=== PATIENT | male | born 1990 | race African-American/Black ===

== ENCOUNTER 2018-10-09 02:54 | Emergency (ER) | payer SELFPAY ==
[~2018-10-09] VITALS: Ht 170.2 cm; Wt 81.6 kg
--- NOTE | 2018-10-09 03:05 | NUR ---
ED Nurse Note: Patient walk in c/o laceration to left hand. Patient states he cut his hand on some broken glass 30 minutes ago. AO4. NAD. VSS. ERMD at bedside.
[2018-10-09] MEDS ORDERED: Tetanus/Diptheria/Pertussis Vaccine 0.5ml Syr IM ONE (03:15)
--- NOTE | 2018-10-09 03:20 | Emergency Room Report ---
History of Present Illness General Chief Complaint: Laceration Source: Patient Present Illness HPI Is a 28-year-old male who is right-hand dominant. He presents with chief complaint of laceration to his left hand. Onset was just prior to arrival. He said he hopped a fence and when he landed he put his hand on the ground and there was a broken glass on the ground. He sustained a laceration to the palm of the right hand. No active bleeding. Denies any pain. No other complaint. Allergies: Coded Allergies: No Known Allergies (Unverified , 10/09/18) Patient History Past Medical History: see triage record, old chart reviewed Past Surgical History: none Pertinent Family History: none Social History: Denies: smoking Immunizations: other Reviewed Nursing Documentation: PMH: Agreed; PSxH: Agreed Nursing Documentation-PM Past Medical History: No History, Except For Hx Asthma: Yes Review of Systems Eye: Denies: eye pain, blurred vision ENT: Denies: ear pain, nose congestion, throat swelling Respiratory: Denies: cough, shortness of breath Cardiovascular: Denies: chest pain, palpitations Gastrointestinal: Denies: abdominal pain, diarrhea, nausea, vomiting Musculoskeletal: Denies: back pain, joint pain Skin: Denies: rash Neurological: Denies: headache, numbness Endocrine: Denies: increased thirst, increased urine Hematologic/Lymphatic: Denies: easy bruising All Other Systems: negative except mentioned in HPI Physical Exam Vital Signs Date Time Temp Pulse Resp B/P (MAP) Pulse Ox O2 Delivery O2 Flow Rate FiO2 10/09/18 03:01 97.5 83 16 102/70 96 Room Air vitals normal Sp02 EP Interpretation: reviewed, normal General Appearance: well appearing, no apparent distress, alert Head: normocephalic, atraumatic Eyes: bilateral eye PERRL, bilateral eye EOMI ENT: hearing grossly normal, normal pharynx Neck: full range of motion, supple, no meningismus Respiratory: chest non-tender, lungs clear, normal breath sounds Cardiovascular #1: regular rate, rhythm, no murmur Gastrointestinal: normal bowel sounds, non tender, no mass, no organomegaly, no bruit, non-distended Musculoskeletal: back normal, gait/station normal, normal range of motion, other - Left hand: On the lateral aspect of the palm, there is a 3 cm superficial laceration. Part of the epidermis is avulsed and creating a flap. No active bleeding. no foreign body. Psychiatric: mood/affect normal Skin: warm/dry Procedures Laceration/Wound Repair Laceration/Wound Repair : Consent: Verbal Wound Location: upper extremity Wound's Depth, Shape: superficial Wound Length (cm): 3 Patient Tolerated: Well Complications: None Progress area clean. I placed Dermabond over the laceration. Medical Decision Making Diagnostic Impression: Primary Impression: Laceration ER Course Patient with superficial laceration to the left palm. No foreign body. No tendon laceration. We'll discharge home. Last Vital Signs Date Time Temp Pulse Resp B/P (MAP) Pulse Ox O2 Delivery O2 Flow Rate FiO2 10/09/18 03:01 97.5 83 16 102/70 96 Room Air Status: improved Disposition: HOME, SELF-CARE Condition: Stable Scripts No Active Prescriptions or Reported Meds Referrals: NOT CHOSEN IPA/MD,REFERRING (PCP) Patient Instructions: Nonsutured Laceration Care Additional Instructions: Follow-up with your doctor in 7 days. Return if worse. Amanuel Mcneal MD Oct 09, 2018 03:20
[2018-10-09 03:22] VITALS: BP 102/70
[2018-10-09 03:25] VITALS: BP 102/70
--- NOTE | 2018-10-09 03:25 | NUR ---
ED Nurse Note: Patient cleared for discharge per ERMD. AO4 NAD. VSS. Patient given prescriptions and discharge instructions; verbalized understanding. ID band removed. Patient ambulated steady with all personal belongings.
== END 2018-10-09 03:25 | disposition home or self-care (01) ==
LOC: EMR 03:14
DX: S61.411A Laceration without foreign body of right hand, initial encounter (principal); W18.02XA Striking against glass with subsequent fall, initial encounter; Y92.89 Other specified places as the place of occurrence of the external cause
CPT/HCPCS: 90471; 90715; 99282